=== PATIENT | male | born 1945 | race Caucasian/White ===

== ENCOUNTER → 2016-12-29 | Outpatient (CLI) | payer MEDICARE, MEDICAID ==
--- NOTE | 2016-12-29 10:38 | CARDIOVASCULAR REPORT ---
"Cerebrovascular Exam Indications: 785.9 Bruit. IMPRESSIONS 1. The right internal carotid artery reveals no evidence of plaque or stenosis. 2. The left internal carotid artery reveals no evidence of plaque or stenosis. 3. The right common and external carotid arteries reveal no significant stenosis. 4. The left common and external carotid arteries reveal no significant stenosis. 5. The bilateral vertebral arteries are patent with normal antegrade flow. Carotid duplex study. Complete study and Doppler flow study including spectral analysis, color and barrera scale imaging. Height: Height: 170.2cm. Height: 67in. Weight: Weight: 80.7kg. Weight: 177.6lb. Body mass index: BMI: 27.9kg/m^2. Body surface area: BSA: 1.97m^2. Location: Vascular laboratory. Patient status: Outpatient. Tables: Arterial flow: + +--------+--------+ |Location |V sys |V ed | + +--------+--------+ |Right CCA - proximal|67.6cm/s|17.3cm/s| + +--------+--------+ |Right CCA - distal |78.6cm/s|19.6cm/s| + +--------+--------+ |Right ECA |58.1cm/s|--------| + +--------+--------+ |Right ICA - proximal|40.9cm/s|13.4cm/s| + +--------+--------+ |Right ICA - mid |67cm/s |26.2cm/s| + +--------+--------+ |Right ICA - distal |64.4cm/s|23cm/s | + +--------+--------+ |Right vertebral |32.2cm/s|--------| + +--------+--------+ |Left CCA - proximal |59.7cm/s|14.1cm/s| + +--------+--------+ |Left CCA - distal |65.2cm/s|15.7cm/s| + +--------+--------+ |Left ECA |58.7cm/s|--------| + +--------+--------+ |Left ICA - proximal |45.6cm/s|14.1cm/s| + +--------+--------+ |Left ICA - mid |66.8cm/s|22.8cm/s| + +--------+--------+ |Left ICA - distal |81.7cm/s|25.5cm/s| + +--------+--------+ |Left vertebral |56.6cm/s|--------| + +--------+--------+ Velocity ratios: + + + + + + | |Right, V sys|Right, V ed|Left, V sys|Left, V ed| + + + + + + |Max ICA/dist CCA|0.85 |1.34 |1.25 |1.62 | + + + + + + (Report amended ) Electronically signed by: Jim Kincaid [id number]"
== END ==
LOC: RT 09:54
DX: R09.89 Other specified symptoms and signs involving the circulatory and respiratory systems (principal)